=== PATIENT | female | born 1950 | race Two or more races ===

== ENCOUNTER 2018-10-28 17:28 | Emergency (ER) | payer OTHER ==
[~2018-10-28] VITALS: Ht 152.4 cm; Wt 65.8 kg
[~2018-10-28 17:28] MED LIST: ULTRACET PO
[2018-10-28] MEDS ORDERED: TESSALON PERLE100 MG PO (22:02)
[2018-10-28] MEDS ORDERED: MUCINEX1200 MG PO (22:02)
== END 2018-10-28 22:15 | disposition home or self-care (01) ==
LOC: ER 17:28
DX: B34.9 Viral infection, unspecified (principal)

== ENCOUNTER 2021-09-25 09:50 | Emergency (ER) | payer OTHER ==
[~2021-09-25] VITALS: Ht 152.4 cm; Wt 63.5 kg
[~2021-09-25 09:50] MED LIST changes: +MUCINEX1200 MG PO; +TESSALON PERLE100 MG PO
[2021-09-25] MEDS ORDERED: SYNTHROID50 MCG (10:01)
[2021-09-25] MEDS ORDERED: LOSARTAN-HCTZ1 EAC1 (10:01)
[2021-09-25] MEDS ORDERED: CYCLOBENZAPRINE10 MG PO (14:08)
[2021-09-25] MEDS ORDERED: SKELAGESIC PO (14:08)
== END 2021-09-25 14:31 | disposition home or self-care (01) ==
LOC: ER 09:50
DX: H53.8 Other visual disturbances (principal); M54.12 Radiculopathy, cervical region; G89.11 Acute pain due to trauma

== ENCOUNTER 2022-06-18 10:23 | Emergency (ER) | payer OTHER ==
[~2022-06-18] VITALS: Ht 147.3 cm; Wt 61.7 kg
[~2022-06-18 10:23] MED LIST changes: +CYCLOBENZAPRINE10 MG PO; +LOSARTAN-HCTZ1 EAC1; +SKELAGESIC PO; +SYNTHROID50 MCG
== END 2022-06-18 14:44 | disposition home or self-care (01) ==
LOC: ER 10:23
DX: U07.1 COVID-19 (principal); Z88.6 Allergy status to analgesic agent; I10 Essential (primary) hypertension

== ENCOUNTER 2022-10-09 09:27 | Emergency (ER) | payer OTHER ==
[~2022-10-09] VITALS: Ht 149.9 cm; Wt 60.8 kg
[2022-10-09] MEDS ORDERED: LEVOTHYROXINE25 MCG PO (09:50)
== END 2022-10-09 12:40 | disposition home or self-care (01) ==
LOC: ER 09:27
DX: S00.12XA Contusion of left eyelid and periocular area, initial encounter (principal); W06.XXXA Fall from bed, initial encounter; Y93.9 Activity, unspecified; Y92.023 Bedroom in mobile home as the place of occurrence of the external cause; Z88.6 Allergy status to analgesic agent; E03.9 Hypothyroidism, unspecified; I10 Essential (primary) hypertension